=== PATIENT | male | born 1965 | race Caucasian/White ===

== ENCOUNTER 2025-01-20 07:50 | Emergency (ER) | payer MEDICAID ==
[2025-01-20] MEDS: Tetracaine HCl/PF 0.5% 4 ML Bottle EYERT ONE (08:05)
== END 2025-01-20 08:19 | disposition home or self-care (01) ==
LOC: LB.ED 07:50
DX: T15.91XA Foreign body on external eye, part unspecified, right eye, initial encounter (principal); Z79.899 Other long term (current) drug therapy; Z88.8 Allergy status to other drugs, medicaments and biological substances; W20.8XXA Other cause of strike by thrown, projected or falling object, initial encounter
CPT/HCPCS: 65220; 99283-25